=== PATIENT | female | born 1985 | race Caucasian/White ===

== ENCOUNTER 2016-09-07 08:50 | Emergency (ER) | payer BC, OTHER ==
[~2016-09-07] VITALS: Ht 160 cm; Wt 55.0 kg
[~2016-09-07 08:50] MED LIST: ACET325T11 PO; CIPR500T4 PO; IBUP800 PO; SULF1TAB47 PO
[2016-09-07 08:52] VITALS: BP 143/90; PULSE 98; RESP 16; TEMP 98; O2SAT 99
[2016-09-07] MEDS ORDERED: ZOFR4TAB3 SL (09:20)
--- NOTE | 2016-09-07 09:21 | PD ---
HPI Chief Complaint: Cold / Flu Symptoms Time Seen by Provider: 09:02 Travel History International Travel<30 days: No Contact w/Intl Traveler<30days: No Traveled to known affect area: No History of Present Illness HPI This is a well 31-year-old woman who presents to the emergency department complaining of vomiting, cough cold symptoms, chills, ear pain, sore throat. Multiple sick contacts at home and at work. Vomiting started yesterday, persisted some throughout the day and she threw up again this morning. Cough is nonproductive. She is a little bit of epigastric abdominal pain, but not much. No diarrhea. History Past Medical History Medical History: Denies Significant Hx PNEUMOCCOCAL Vaccine (Year): 2 : 4 Para: 3 Dilation and Curettage (D&C): Yes Social History Alcohol Use: Yes ("VERY RARELY") Tobacco Use: Yes (ONE PPD) Allergies-Medications (Allergen,Severity, Reaction): Coded Allergies: No Known Allergies (Verified , 09/07/16) Reported Meds & Prescriptions Reported Meds & Active Scripts Active Zofran Odt (Ondansetron Odt) 4 Mg Tab 4 Mg SL Q8HR PRN May substitute non-ODT form. Review of Systems Except as stated in HPI: all other systems reviewed are Neg Physical Exam Narrative GENERAL: Well-appearing 31-year-old woman, no acute distress. SKIN: Warm and dry. HEAD: Atraumatic. Normocephalic. HEENT: Throat normal. TMs normal. Little bit of anterior cervical adenopathy. CARDIOVASCULAR: Regular rate and rhythm. No murmur appreciated. RESPIRATORY: No accessory muscle use. Clear to auscultation. Breath sounds equal bilaterally. GASTROINTESTINAL: Abdomen soft, non-tender, nondistended. Hepatic and splenic margins not palpable. MUSCULOSKELETAL: No obvious deformities. No edema. NEUROLOGICAL: Awake and alert. No obvious cranial nerve deficits. Motor grossly within normal limits. Normal speech. Data Data Last Documented VS Vital Signs Date Time Temp Pulse Resp B/P Pulse Ox O2 Delivery O2 Flow Rate FiO2 09/07/16 09:06 98 Room Air 09/07/16 08:52 98.0 98 16 143/90 Orders Ondansetron Odt (Zofran Odt) (09/07/16 09:30) Naproxen (Naprosyn) (09/07/16 09:30) Ed Urine Pregnancytest Poc (09/07/16 09:22) [facility] Medical Decision Making Medical Screen Exam Complete: Yes Emergency Medical Condition: Yes Differential Diagnosis URI, gastritis, cholecystitis, , viral syndrome, other Narrative Course Medical decision making INITIAL: 31-year-old woman who presents to the emergency department with viral syndrome type symptoms with vomiting sore throat cough and congestion. Benign abdominal exam. Looks well. We will recommend supportive treatment. Diagnosis Primary Impression: URI (upper respiratory infection) Qualified Code: J06.9 - Viral upper respiratory tract infection Additional Impression: Vomiting Qualified Code: R11.2 - Non-intractable vomiting with nausea, unspecified vomiting type Patient Instructions: General Instructions Additional Instructions: Use Zofran as needed for vomiting. Use Aleve or ibuprofen as needed for sore throat and body aches or fever. Follow up with your primary doctor if you are not well in 5-7 days. Return to the ER if you develop worsening abdominal pain, dehydration, weakness , or any other new or worsening symptoms. Med/Other Pt SpecificInfo: Prescription(s) given Scripts Ondansetron Odt (Zofran Odt)4 Mg Tab4 Mg SL Q8HR PRN (Nausea/Vomiting) #15 TAB May substitute non-ODT form. Prov:Sonu Wood MD 09/07/16 Disposition: 01 DISCHARGE HOME Condition: Stable Sonu Wood MD Sep 07, 2016 09:21
[2016-09-07] MEDS ORDERED: NAPROXEN 500 MG TAB PO ONE (09:30)
[2016-09-07] MEDS ORDERED: ONDANSETRON ODT 4 MG TAB PO ONE (09:30)
[2017-01-19] MEDS ORDERED: BACT800T5 PO (12:21)
[2017-01-19] MEDS ORDERED: NORC5TAB PO (15:14)
== END 2016-09-07 09:38 | disposition home or self-care (01) ==
LOC: NEPA 08:50
DX: J06.9 Acute upper respiratory infection, unspecified (principal); R11.2 Nausea with vomiting, unspecified; F17.200 Nicotine dependence, unspecified, uncomplicated
CPT/HCPCS: 84703; 99283

== ENCOUNTER → 2017-01-19 | Day surgery (SDC) | payer BC, MEDICAID ==
[~2017-01-19] VITALS: Ht 160 cm; Wt 56.5 kg
[~2017-01-19] MED LIST changes: +*morphine SULFATE 8 MG/ML PERIprocedure ONLY ONE; -ACET325T11 PO; +ACETAMINOPHEN 1000 MG/100 ML VIAL IV ONE; +ACETAMINOPHEN/HYDROcodone 325 MG/5 MG TAB PO PRN; +BACT800T5 PO; +BUPIVACAINE/EPINEPHRINE 0.5% PF 30 ML VIAL ONE; +CHLORHEXIDINE GLUCONATE 2 % 1 PACK (2 CLOTHS) TOPICAL PRN; -CIPR500T4 PO; +DEXAMETHASONE SOD PHOS 4 MG/ML VIAL ONE; +DO NOT ADM ANY ANTICOAGULANT DRUGS PRN; +FAMOTIDINE 20 MG/2 ML VIAL ONE; -IBUP800 PO; +INSULIN HUMAN REGULAR 1,000 UNITS/10 ML VIAL SQ PRN; +LACTATED RINGER'S 1000 ML INJ 1,000 ML IV ONE; +LACTATED RINGER'S 1000 ML IV PRN; +METOPROLOL TARTRATE 25 MG TAB PO PRN; +MIDAZOLAM HCL 2 MG/2 ML VIAL ONE; +NEOSTIGMINE 3 MG/3 ML SYR IV ONE; +NORC5TAB PO; +ONDANSETRON HCL 4 MG/2 ML VIAL IV PUSH ONE; +POVIDONE IODINE 5% (ANTISEPSIS KIT) 4 APPLICATIONS EACH NARE PRN; +PROPOFOL 200 MG/20 ML AMP IV ONE; +SODIUM BICARBONATE 8.4% INJ 50 ML ONE; +SODIUM CHLORID 0.9% 500 ML IV PRN; -SULF1TAB47 PO; +ZOFR4TAB3 SL; +ceFAZolin 1,000 MG/NS 100 ML IV SCH; +fentaNYL CITRATE 250 MCG/5 ML AMP ONE
[2017-01-19 12:22] VITALS: BP 129/69; PULSE 95; RESP 16; TEMP 99; O2SAT 98
[2017-01-19 16:12] VITALS: BP 119/69; PULSE 68; RESP 18; TEMP 98.1; O2SAT 97
--- NOTE | 2017-01-21 09:29 | MP ---
cc: RICK DORMAN M.D. DATE OF SURGERY 01/19/2017 PREOPERATIVE DIAGNOSIS Umbilical hernia POSTOPERATIVE DIAGNOSIS Umbilical hernia PROCEDURE Repair of umbilical hernia, symptomatic. ANESTHESIA General SURGEON Dr. Dorman INDICATIONS This is a pleasant 31-year-old female who has an umbilical hernia that is quite tender to her. She has been taking a lot of ibuprofen and has associated gastritis as well. Plans were made for repair of this umbilical hernia. PROCEDURE The patient taken to the operating room, placed in the supine position. After anesthesia, her abdomen is prepped with Betadine. A time-out was done. She was given preoperative antibiotics. We make an incision in a vertical fashion in the umbilicus just coursing outside the umbilicus, dissect down through the subcutaneous tissue identifying the hernia sac at the stalk of the umbilicus. This is . The hernia is then completely reduced into the abdomen. The hernia defect measures approximately 8 mm. We were then able to close this defect with three interrupted Ethibond sutures in a horizontal fashion with interrupted 0-Ethibond suture. Once the suture had been placed and cinched down to close the defect, we then closed the deep layer with 3-0 Vicryl and skin was closed with 4-0 Vicryl. Steri-Strips applied. Sterile bandage applied. The patient tolerated the procedure well and had no immediate postop complications. MD KARLENE Yanes/MEGAN /2:50 PM /9:28 AM
== END | disposition home or self-care (01) ==
LOC: HSDC 11:39
PROVIDERS: ATTEND Surgery
DX: K42.9 Umbilical hernia without obstruction or gangrene (principal); K29.70 Gastritis, unspecified, without bleeding
CPT/HCPCS: 00830; 49585; J0131; J0690; J1100; J2250; J2270; J2405; J2710; J3010; J7120

== ENCOUNTER 2017-04-09 04:52 | Emergency (ER) | payer BC, MEDICAID ==
[~2017-04-09 04:52] MED LIST changes: -*morphine SULFATE 8 MG/ML PERIprocedure ONLY ONE; -ACETAMINOPHEN 1000 MG/100 ML VIAL IV ONE; -ACETAMINOPHEN/HYDROcodone 325 MG/5 MG TAB PO PRN; -BUPIVACAINE/EPINEPHRINE 0.5% PF 30 ML VIAL ONE; -CHLORHEXIDINE GLUCONATE 2 % 1 PACK (2 CLOTHS) TOPICAL PRN; -DEXAMETHASONE SOD PHOS 4 MG/ML VIAL ONE; -DO NOT ADM ANY ANTICOAGULANT DRUGS PRN; -FAMOTIDINE 20 MG/2 ML VIAL ONE; -INSULIN HUMAN REGULAR 1,000 UNITS/10 ML VIAL SQ PRN; -LACTATED RINGER'S 1000 ML INJ 1,000 ML IV ONE; -LACTATED RINGER'S 1000 ML IV PRN; -METOPROLOL TARTRATE 25 MG TAB PO PRN; -MIDAZOLAM HCL 2 MG/2 ML VIAL ONE; -NEOSTIGMINE 3 MG/3 ML SYR IV ONE; -ONDANSETRON HCL 4 MG/2 ML VIAL IV PUSH ONE; -POVIDONE IODINE 5% (ANTISEPSIS KIT) 4 APPLICATIONS EACH NARE PRN; -PROPOFOL 200 MG/20 ML AMP IV ONE; -SODIUM BICARBONATE 8.4% INJ 50 ML ONE; -SODIUM CHLORID 0.9% 500 ML IV PRN; -ZOFR4TAB3 SL; -ceFAZolin 1,000 MG/NS 100 ML IV SCH; -fentaNYL CITRATE 250 MCG/5 ML AMP ONE
[2017-04-09 04:54] VITALS: BP 148/79; PULSE 116; RESP 16; TEMP 98.6; O2SAT 99
[2017-04-09 06:07] VITALS: BP 136/88; PULSE 82; RESP 16; O2SAT 98
[2017-04-09] MEDS ORDERED: SODIUM CHLORIDE 0.9% FLUSH 10 ML FLUSH IVF PRN (06:30)
--- NOTE | 2017-04-09 06:43 | PD ---
HPI Chief Complaint: Chest Pain Time Seen by Provider: 06:18 Travel History International Travel<30 days: No Contact w/Intl Traveler<30days: No Traveled to known affect area: No History of Present Illness HPI 31-year-old female arrives with chest pain. Location retrosternal. There is radiation to the right arm and into the region of the epigastrium. Severity moderate. Quality shooting. No pleuritic pain. No cough. No shortness of breath. No similar prior episodes. Patient woke up with the pain. Patient wonders if it might be due to stress as her daughter was recently admitted to the hospital. [facility] Past Medical History Anemia: Yes Anxiety: Yes Cancer: No Cardiovascular Problems: No Chest Pain: Yes Diabetes: No Diminished Hearing: No Endocrine: No Gastrointestinal Disorders: No Genitourinary: No Hepatitis: No Immune Disorder: No Musculoskeletal: Yes (MYALGIAS, ARTHRALGIA) Psychiatric: No Reproductive: No Respiratory: No Immunizations Current: Yes Seizures: Yes Thyroid Disease: No PNEUMOCCOCAL Vaccine (Year): 2 ?: Unknown LMP: 03/11/17 : 4 Para: 3 Miscarriage: 0 : 1 Ovarian Cysts: Yes Dilation and Curettage (D&C): Yes Past Surgical History Gynecologic Surgery: Yes (D/C, ORAL SURGERY) Oral Surgery: Yes (WISDOM TEETH REMOVAL) Other Surgery: Yes (WISDOM TEETH) Social History Alcohol Use: Yes (OCC) Tobacco Use: Yes (ONE PPD) Substance Use: No (HX OPIATES) Allergies-Medications (Allergen,Severity, Reaction): Coded Allergies: No Known Allergies (Verified , 04/09/17) Reported Meds & Prescriptions Reported Meds & Active Scripts Active Review of Systems Except as stated in HPI: all other systems reviewed are Neg Physical Exam Narrative GENERAL: 31-year-old female pleasant well-nourished well-developed SKIN: Warm and dry. HEAD: Atraumatic. Normocephalic. EYES: Pupils equal and round. No scleral icterus. No injection or drainage. ENT: No nasal bleeding or discharge. Mucous membranes pink and moist. NECK: Trachea midline. No JVD. CARDIOVASCULAR: Regular rate and rhythm. Minimal tenderness palpation about the right anterior chest wall. RESPIRATORY: No accessory muscle use. Clear to auscultation. Breath sounds equal bilaterally. GASTROINTESTINAL: Abdomen soft, non-tender, nondistended. Hepatic and splenic margins not palpable. MUSCULOSKELETAL: Extremities without clubbing, cyanosis, or edema. No obvious deformities. NEUROLOGICAL: Awake and alert. No obvious cranial nerve deficits. Motor grossly within normal limits. Five out of 5 muscle strength in the arms and legs. Normal speech. PSYCHIATRIC: Appropriate mood and affect; insight and judgment normal. Data Data Last Documented VS Vital Signs Date Time Temp Pulse Resp B/P (MAP) Pulse Ox O2 Delivery O2 Flow Rate FiO2 04/09/17 06:22 97 Room Air 04/09/17 06:07 82 16 136/88 (104) 04/09/17 04:54 98.6 Vital signs reviewed Orders Orders Electrocardiogram (04/09/17 06:18) Basic Metabolic Panel (Bmp) (04/09/17 06:18) Complete Blood Count With Diff (04/09/17 06:18) D-Dimer (04/09/17 06:18) Chest, Single Ap (04/09/17 06:18) Ecg Monitoring (04/09/17 06:18) Iv Access Insert/Monitor (04/09/17 06:18) Oximetry (04/09/17 06:18) Oxygen Administration (04/09/17 06:18) Sodium Chloride 0.9% Flush (Ns Flush) (04/09/17 06:30) MDM Medical Decision Making Medical Screen Exam Complete: Yes Emergency Medical Condition: Yes Medical Record Reviewed: Yes Differential Diagnosis NSTEMI, unstable angina, coronary vasospasm, PE, PTX, aortic dissection, pericarditis, myocarditis, endocarditis, PNA, esophageal disease, aneurysm, musculoskeletal etiologies, anxiety, cocaine/sympathomimetic abuse Narrative Course EKG reveals a sinus rhythm at a rate of 69 normal axis intervals no ischemic injury pattern Blood work pending at time of dictation. Oncoming provider to follow-up and disposition Jeffrey Chin MD Apr 09, 2017 06:43
--- NOTE | 2017-04-09 06:45 | RADRPT ---
EXAM DATE/TIME: 04/09/2017 06:36 [facility] COMPARISON: No previous studies available for comparison. INDICATIONS : Chest pain MEDICAL HISTORY : None. SURGICAL HISTORY : None. ENCOUNTER: Initial ACUITY: 1 day PAIN SCORE: 08/17 LOCATION: Bilateral chest FINDINGS: A single view of the chest demonstrates the lungs to be symmetrically aerated without evidence of mas s, infiltrate or effusion. The cardiomediastinal contours are unremarkable. Osseous structures are intact. CONCLUSION: No acute disease. Anthony Partida MD on April 09, 2017 at 6:43 Board Certified Radiologist. This report was verified electronically.
[2017-04-09 07:00] LABS: AUTOMATED NEUTROPHIL # 3.9 TH/MM3 (1.8-7.7); BASOPHIL # 0.1 TH/MM3 (0-0.2); BASOPHIL % 2.3 % (0.0-2.0); EOSINOPHIL # 0.2 TH/MM3 (0-0.4); EOSINOPHIL % 2.6 % (0.0-4.0); HEMATOCRIT 40.4 % (35.0-46.0); HEMO FLAGS DIFF FINAL; LYMPH % 26.2 % (9.0-44.0); LYMPHOCYTE # 1.6 TH/MM3 (1.0-4.8); MEAN CELL VOLUME 89.2 FL (80.0-100.0); MEAN CORPUSCULAR HEMOGLOBIN 30.8 PG (27.0-34.0); MEAN CORPUSCULAR HGB CONC 34.5 % (32.0-36.0); MONO % 4.9 % (0.0-8.0); PLATELET COUNT 153 TH/MM3 (150-450); RED BLOOD COUNT 4.53 MIL/MM3 (4.00-5.30); WHITE BLOOD COUNT 6.1 TH/MM3 (4.0-11.0)
[2017-04-09 07:12] LABS: POTASSIUM 3.7 MEQ/L (3.5-5.1)
[2017-04-09 07:15] VITALS: BP 128/85; PULSE 77; RESP 14; O2SAT 99
--- NOTE | 2017-04-09 07:44 | PD ---
Physical Exam Date Seen by Provider: Apr 09, 2017 Narrative Care was assumed from Dr. Chin at 7 AM pending workup for right-sided chest pain. The patient is sitting in the room planning a more cell phone in no acute distress. Data Data Last Documented VS Vital Signs Date Time Temp Pulse Resp B/P (MAP) Pulse Ox O2 Delivery O2 Flow Rate FiO2 04/09/17 07:15 77 14 128/85 (99) 99 Room Air 04/09/17 04:54 98.6 Orders Orders Electrocardiogram (04/09/17 06:18) Basic Metabolic Panel (Bmp) (04/09/17 06:18) Complete Blood Count With Diff (04/09/17 06:18) D-Dimer (04/09/17 06:18) Chest, Single Ap (04/09/17 06:18) Ecg Monitoring (04/09/17 06:18) Iv Access Insert/Monitor (04/09/17 06:18) Oximetry (04/09/17 06:18) Oxygen Administration (04/09/17 06:18) Sodium Chloride 0.9% Flush (Ns Flush) (04/09/17 06:30) Labs Laboratory Tests Test 04/09/17 06:30 White Blood Count 6.1 TH/MM3 Red Blood Count 4.53 MIL/MM3 Hemoglobin 13.9 GM/DL Hematocrit 40.4 % Mean Corpuscular Volume 89.2 FL Mean Corpuscular Hemoglobin 30.8 PG Mean Corpuscular Hemoglobin Concent 34.5 % Red Cell Distribution Width 13.0 % Platelet Count 153 TH/MM3 Mean Platelet Volume 10.7 FL Neutrophils (%) (Auto) 64.0 % Lymphocytes (%) (Auto) 26.2 % Monocytes (%) (Auto) 4.9 % Eosinophils (%) (Auto) 2.6 % Basophils (%) (Auto) 2.3 % Neutrophils # (Auto) 3.9 TH/MM3 Lymphocytes # (Auto) 1.6 TH/MM3 Monocytes # (Auto) 0.3 TH/MM3 Eosinophils # (Auto) 0.2 TH/MM3 Basophils # (Auto) 0.1 TH/MM3 CBC Comment DIFF FINAL Differential Comment D-Dimer Quantitative (PE/DVT) 0.25 MG/L FEU Blood Urea Nitrogen 10 MG/DL Creatinine 0.81 MG/DL Random Glucose 89 MG/DL Calcium Level 8.8 MG/DL Sodium Level 140 MEQ/L Potassium Level 3.7 MEQ/L Chloride Level 106 MEQ/L Carbon Dioxide Level 24.0 MEQ/L Anion Gap 10 MEQ/L Estimat Glomerular Filtration Rate 84 ML/MIN MDM Supervised Visit with [facility]: No Narrative Course CBC & BMP Diagram 04/09/17 06:30 Calcium Level 8.8 D-dimer is negative Last Impressions Chest X-Ray 04/09/17617 Signed Impressions: Service Date/Time: Sunday, April 09, 2017 06:36 - CONCLUSION: No acute disease. Anthony Partida MD The history, exam, diagnostic testing, and current condition do not suggest any significant pathology to warrant further testing, continued ED treatment, admission, or surgical evaluation at this point. The patient's condition is stable and appropriate for discharge. Diagnosis Primary Impression: Chest wall pain Patient Instructions: Chest Wall Pain (ED), General Instructions Disposition: 01 DISCHARGE HOME Condition: Stable Oralia Shukla MD Apr 09, 2017 07:44
--- NOTE | 2017-04-09 09:14 | EKG ---
Date Performed: 04/09/2017 Time Performed: 06:16:54 PTAGE: 31 years EKG: Sinus rhythm NORMAL ECG PREVIOUS TRACING : 12/11/2011 18.51 DOCTOR: Sonu Duran Interpretating Date/Time 04/09/2017 09:13:09
== END 2017-04-09 08:12 | disposition home or self-care (01) ==
LOC: NEPE 04:52
DX: R07.89 Other chest pain (principal); F17.200 Nicotine dependence, unspecified, uncomplicated
CPT/HCPCS: 71010; 80048; 85025; 85379; 93005; 99285